=== PATIENT | male | born 1970 | race Caucasian/White ===

== ENCOUNTER 2017-08-24 05:32 | Day surgery (SDC) | payer BC ==
[2017-08-24] MEDS ORDERED: Midazolam 1 MG/ML 2 ML SDV IV ONE ×3 (05:33→06:40)
[2017-08-24] MEDS ORDERED: fentaNYL 100 MCG/2 ML SDV IV ONE ×3 (05:33→06:39)
[2017-08-24] MEDS ORDERED: Dextrose 5%-0.45% NaCl 1,000 ML IV SCH (06:00)
[2017-08-24] MEDS ORDERED: Sodium Chloride 0.9% 10 ML Syringe FLUSH PRN (06:00)
[2017-08-24] MEDS ORDERED: fentaNYL 100 MCG/2 ML SDV ONE (06:13)
[2017-08-24] MEDS ORDERED: Midazolam 1 MG/ML 2 ML SDV ONE (06:13)
--- NOTE | 2017-08-24 12:45 | OR ---
DATE: 08/24/2017 PROCEDURE: Esophagogastroduodenoscopy and multiple pinch biopsies. INSTRUMENT USED: GIF-Q180 Olympus video panendoscope. PREMEDICATIONS: No oral topical anesthesia used. Fentanyl 100 mcg intravenous, Versed 2 mg intravenous, nasal O2 cannula. The procedure was done under pulse oximetry, BP recording, and cardiac catheterization technician. INDICATION: The patient with longstanding dysphagia for solid sessile as regurgitation, unexplained, on long-term aspirin as well as doxycycline. Esophagogastroduodenoscopy is performed for detection of any active erosive lesions, Kamara's esophagus, and esophageal malignancy also under consideration. Biopsies to be obtained for esophageal eosinophilia if indicated. H. pylori status to be determined, esophageal dilatations if indicated, endoscopic hemostasis therapy if needed. The scope was passed with ease. Adequate visualization of the esophagus was made from proximal to distal areas. No upper esophageal lesions identified. Grade D erosive changes were noted as per [place] criteria, and some stricture of the distal esophagus was noted. The tip of the scope was passed with ease to visualize the gastric mucosa. No uphill or downhill esophageal varices. No Micki-Cottrell tear. No esophageal malignant lesions noted. No esophageal polyps noted. Z-line was seen at around 40 cm distal to the oral verge. No proximal gastric varices noted. Gastric fundus examination by retroflexion showed no polypoid lesions. No gastric ulcer, malignant mass, or vascular ectasia identified. There was some pyloric spasm. Duodenal bulb showed no ulcer. Visualized second part of the duodenum was unremarkable. Multiple pinch biopsies were obtained from the gastric antrum and proximal body and sent for PyloriTek test for H. pylori, and if negative, then all the tissues to be sent for histopathology. No bleeding was noted from any of the visualized areas at the completion of examination. Photographs were taken of the duodenal bulb, gastric antrum, fundus, and distal esophagus. IMPRESSION: 1. Grade D gastroesophageal reflux disease. 2. Peptic esophageal stricture. The patient tolerated the procedure well. [facility] /[id number]
== END 2017-08-24 08:56 | disposition home or self-care (01) ==
LOC: DL.ENDO 05:32
PROVIDERS: ATTEND Internal Medicine Gastroenterology
DX: K22.2 Esophageal obstruction (principal); K21.9 Gastro-esophageal reflux disease without esophagitis; E66.9 Obesity, unspecified; I10 Essential (primary) hypertension; E78.5 Hyperlipidemia, unspecified; Z79.82 Long term (current) use of aspirin; Z79.2 Long term (current) use of antibiotics; Z79.899 Other long term (current) drug therapy; Z68.30 Body mass index [BMI] 30.0-30.9, adult
CPT/HCPCS: 43239; 87077; J2250; J3010; J7042

== ENCOUNTER 2017-11-16 05:31 | Day surgery (SDC) | payer BC ==
[2017-11-16] MEDS ORDERED: fentaNYL 100 MCG/2 ML SDV IV ONE (05:32)
[2017-11-16] MEDS ORDERED: Midazolam 1 MG/ML 2 ML SDV IV ONE (05:32)
[2017-11-16] MEDS ORDERED: Sodium Chloride 0.9% 10 ML Syringe FLUSH PRN (06:00)
[2017-11-16] MEDS ORDERED: fentaNYL 100 MCG/2 ML SDV ONE (06:15)
[2017-11-16] MEDS ORDERED: Midazolam 1 MG/ML 2 ML SDV ONE (06:15)
[2017-11-16] MEDS: Dextrose 5%-0.45% NaCl 1,000 ML IV SCH (06:16)
[2017-11-16] MEDS: fentaNYL 100 MCG/2 ML SDV IV ONE ×2 (06:35→06:36)
[2017-11-16] MEDS: Midazolam 1 MG/ML 2 ML SDV IV ONE ×2 (06:36→06:37)
--- NOTE | 2017-11-16 07:24 | OR ---
DATE: 11/16/2017 PROCEDURE DONE: Esophagogastroduodenoscopy and multiple pinch biopsies. INSTRUMENT USED: GIF-H180 Olympus video panendoscope. PREMEDICATIONS: No oral or topical anesthesia used. Fentanyl 100 mcg intravenous, Versed 2 mg intravenous. Nasal O2 cannula. The procedure was done under pulse oximetry, BP recording, and radiographer cardiac catheterization. INDICATION: The patient with longstanding heartburn as well as dysphagia with previously noted grade D GERD and peptic esophageal stricture. On PPI therapy. Followup esophagogastroduodenoscopy is performed for detection of persistent esophageal ulcers and rule out Kamara esophagus and/or malignancy. Esophageal dilatations as indicated, endoscopic hemostasis therapy as needed. DESCRIPTION OF PROCEDURE: The scope was passed with ease. Adequate visualization of the esophagus was made from proximal to distal areas. No upper esophageal lesions identified. There was some stricture of the distal esophagus, but the tip of the scope was passed with ease to visualize the gastric mucosa. No uphill or downhill esophageal varices. No Micki-Cottrell tear. No evidence of erosive esophagitis by [place] criteria. No esophageal polyp or tumor mass identified. Z-line was seen at around 40 cm distal to the oral verge, configuration consistent with grade 1 by ZAP classification. No proximal gastric varices noted. Gastric fundus examination by retroflexion showed no polypoid lesions. No gastric ulcer, malignant mass, or vascular ectasia identified. Duodenal bulb showed no ulcer. Visualized second part of the duodenum was unremarkable. Four quadrant biopsies were taken from the distal and proximal esophagus and then sent for any evidence of esophageal eosinophilia. No bleeding was noted from any of the visualized areas at the completion of examination. Photographs were taken of the duodenal bulb, gastric antrum, fundus, and distal esophagus. IMPRESSION: Peptic esophageal stricture. The patient tolerated the procedure well. [facility] /[id number]
--- NOTE | 2017-11-16 07:27 | OR ---
DATE: 11/16/2017 PROCEDURE DONE: Esophageal dilatation. INSTRUMENT USED: Reyes Bougie esophageal dilator, [place] size #48. PREMEDICATIONS: Done after EGD. INDICATION: The patient with long-standing heartburn, dysphagia, and peptic esophageal stricture. Esophageal dilatation was done with ease using Palauan size #48 dilator. Some blood was noted at the dilator tip after completion. IMPRESSION: Peptic esophageal stricture. The patient tolerated the procedure well. [facility] /[id number]
== END 2017-11-16 08:39 | disposition home or self-care (01) ==
LOC: DL.ENDO 05:31
PROVIDERS: ATTEND Internal Medicine Gastroenterology
DX: K22.8 Other specified diseases of esophagus (principal); K21.9 Gastro-esophageal reflux disease without esophagitis; I10 Essential (primary) hypertension; E78.5 Hyperlipidemia, unspecified
CPT/HCPCS: 43239; 43450; J2250; J3010; J7042

== ENCOUNTER 2020-09-17 05:52 | Day surgery (SDC) | payer BC ==
[~2020-09-17 05:52] MED LIST: Dextrose 5%-0.45% NaCl 1,000 ML IV SCH; Sodium Chloride 0.9% 10 ML Syringe FLUSH PRN
[2020-09-17] MEDS ORDERED: fentaNYL 100 MCG/2 ML SDV IV ONE ×3 (05:53→07:19)
[2020-09-17] MEDS ORDERED: Midazolam 1 MG/ML 2 ML SDV IV ONE ×7 (05:53→07:27)
[2020-09-17] MEDS ORDERED: Midazolam 1 MG/ML 2 ML SDV ONE (06:14)
[2020-09-17] MEDS ORDERED: fentaNYL 100 MCG/2 ML SDV ONE (06:14)
--- NOTE | 2020-09-17 10:51 | OR ---
DATE: 09/17/2020 PROCEDURE: Total colonoscopy. INSTRUMENT USED: [id number]-VH712D Olympus video colonoscope. PREMEDICATIONS: Fentanyl 100 mcg intravenous, Versed 2 mg intravenous. Nasal O2 cannula. The procedure was done under pulse oximetry, BP recording, and awake overnight monitor. INDICATION: Screening colonoscopic examination is done for detection of any polypoid lesions and removal, endoscopic hemostasis therapy if needed. DESCRIPTION OF PROCEDURE: Initial rectal exam was unremarkable. Rigid anoscopy showed small internal hemorrhoids without bleeding from them. The colonoscope was passed with ease. Numerous scattered diverticula were noted in the colon, more so in the distal left colon along with some deformity. The scope was passed with ease up to the ileocecal area. Photographs were taken of the normal- appearing cecum, identified by landmarks of appendiceal orifice and double- bulged ileocecal folds. No bleeding was noted from any of the visualized areas at the commencement of the examination. Bowel preparation was found to be adequate, Dixon scale 2 in all the regions, total score 6. No stricture. No vascular ectasia. No large isolated ulcerations seen. No evidence of diffuse inflammatory bowel disease in the form of friability, contact bleeding, or ulcerations. In the distal ascending colon, 5 mm sized benign-appearing polyp was noted, photograph was taken, cold snare polypectomy was done, the tissue was retrieved and sent for histopathology. Probing the proximal sides of folds and flexures using adequate distention and clearing up the stool material, withdrawal of the scope was made, cecum to rectum time over 6 minutes. No bleeding was noted from any of the visualized areas at the completion of examination. IMPRESSION: 1. Internal hemorrhoids. 2. [place] diverticulosis. 3. Ascending colon polyp. The patient tolerated the procedure well. [facility] /[id number]
== END 2020-09-17 09:43 | disposition home or self-care (01) ==
LOC: DL.ENDO 05:52
PROVIDERS: ATTEND Internal Medicine Gastroenterology
DX: Z12.11 Encounter for screening for malignant neoplasm of colon (principal); D12.2 Benign neoplasm of ascending colon; K57.30 Diverticulosis of large intestine without perforation or abscess without bleeding; K64.8 Other hemorrhoids
CPT/HCPCS: J2250; J3010; J7042